=== PATIENT | male | born 1990 | race Caucasian/White ===

== ENCOUNTER 2020-04-20 21:03 | Emergency (ER) | payer OTHER ==
[~2020-04-20] VITALS: Ht 175.2 cm; Wt 81.8 kg
--- OUTSIDE RECORDS SUMMARY | 2020-04-20 21:09 | XMS REPORT ---
Author Author Gigi BORDEN [facility] Address [address] [place] [address] Care Team Providers Care Magnetic Doctor Name Role Phone RYNE BORDEN Unavailable PROBLEMS Unknown Problems ALLERGIES No Known Allergies ENCOUNTERS Encounter Location Date Diagnosis [facility] [id number] [place] [address] Nov, Exposure to chlamydia Z20.2 and Screening for STD (sexually transmitted disease) Z11.3 [facility] [address] [facility] [id number] [place] [address] Jun, Folliculitis L73.9 IMMUNIZATIONS No Known Immunizations SOCIAL HISTORY Never Assessed REASON FOR VISIT STD check, Pt presents today with exposure to claymida/ Pt denies any problems a t this time/ Pts partner is currently being treated. Jyoti Hicks (R) PLAN OF CARE Activity Details Follow Up pending labs and prn Reason: VITAL SIGNS Height 70 in 2018-12-07 Weight 164 lbs 2018-12-07 Temperature 97.5 degrees Fahrenheit 2018-12-07 BMI 23.53 kg/m2 2018-12-07 Blood pressure systolic 140 mmHg 2018-12-07 Blood pressure diastolic 80 mmHg 2018-12-07 MEDICATIONS Medication Instructions Dosage Frequency Start Date End Date Duration S tatus Azithromycin 500 mg Orally once 2 tabs Nov, 1 d ose Active RESULTS No Results PROCEDURES Procedure Date Ordered Result Body Site BLOOD SEROLOGY, QUALITATIVE December 07, 2018 CHYLMD TRACH, DNA, AMP PROBE December 07, 2018 HIV-1 AG W/HIV-1 & HIV-2 AB December 07, 2018 N.GONORRHOEAE, DNA, AMP PROB December 07, 2018 INSTRUCTIONS MEDICATIONS ADMINISTERED No Known Medications
--- OUTSIDE RECORDS SUMMARY | 2020-04-20 21:09 | XMS REPORT | Continuity of Care Document ---
Author Organization Unknown Address Unknown Phone Unavailable Allergies There is no data. Medications There is no data. Problems There is no data. Procedures There is no data. Results Test Result Range HIV ANTIGEN/ANTIBODY - 12/07/18 13:40 HIV AG/AB, 4TH GEN NON-REACTIVE NON-PATY CTIVE SYPHILIS (RPR W/ REFLEX CONFIRMATION) - 12/07/18 13:40 RPR (DX) W/REFL TITER AND CONFIRMATORY TESTING NON-REACTIVE NON-REACTIVE GC/CHLAMYDIA (SWAB OR URINE)-RAPID - 13:40 CHLAMYDIA TRACHOMATIS RNA, TMA DETECTED NOT DETECTED NEISSERIA GONORRHOEAE RNA, TMA NOT DETECTED NOT DETECTED COMMENT NRG Encounters ACCT No. Visit Date/Time Discharge Status Pt. Type Provider Facility Loc./Unit Complaint [id number] 12/07/2018 12:20:00 12/07/2018 23:59:5 9 CLS Outpatient [facility] IN [facility] [id number] 12/07/2018 12:20:00 Document Registration
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
--- NOTE | 2020-04-20 21:15 | NUR ---
Pt very boisterous, argumentative and confrontational. Pt stated, "Im fine! I dont need anything. I do not consent to any treatment." This RN attempted to calm the pt and allow me to assess and dress the laceration to the Rt elbow. "Hey, I am here to help you. Let me wrap your elbow so you dont bleed on yourself." Pt finally allowed this RN to wrap the laceration with 4x4 dressings and gauze.
--- NOTE | 2020-04-20 21:20 | NUR ---
This RN removed the elbow bandage for the physician to evaluate and pt is unwilling to allow the gauze wrap to be placed back on. Pt is also declining all IV treatment and medical evaluation. "I do not consent to any thing! I do not consent! No! No! Im fine." This RN discussed the issue with law enforcement. The officer stated, "Thats fine. We will take him to penitentiary."
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
--- NOTE | 2020-04-20 21:50 | NUR ---
This RN attempted to have the pt sign discharge instructions and AMA form. Pt refused stating, "Im not signing anything! Just take me to senior living!"
[2020-04-20 21:53] VITALS: BP 111/60
--- NOTE | 2020-04-20 21:53 | NUR ---
Pt was placed in wheelchair by two [employer] officers. Pt became combative with the officers. Pt was wheeled outside to awaiting police car by the officers. Discharge paperwork given to the officer.
== END 2020-04-20 21:53 ==
LOC: ER FS 21:05
DX: S51.811A Laceration without foreign body of right forearm, initial encounter (principal); F10.129 Alcohol abuse with intoxication, unspecified; W22.8XXA Striking against or struck by other objects, initial encounter
CPT/HCPCS: 99283